=== PATIENT | female | born 1985 | race Caucasian/White ===

== ENCOUNTER → 2018-09-04 | Outpatient (CLI) | payer OTHER ==
[~2018-09-04] MED LIST: IOPAMIDOL (ISOVUE-300) 100 ML BTL ONE
== END ==
LOC: CIMAGING 08:22
PROVIDERS: ATTEND Physician Assistant
DX: R10.84 Generalized abdominal pain (principal); N85.8 Other specified noninflammatory disorders of uterus; R19.5 Other fecal abnormalities
CPT/HCPCS: 74177-PO; Q9967